=== PATIENT | female | born 1985 | race Caucasian/White ===

== ENCOUNTER 2019-08-20 10:18 | Inpatient (IN) | payer BC ==
[~2019-08-20 10:18] MED LIST: Buffered Lidocaine 1% SYRIN* 1 ML/SYRINGE INTRADERM ONE; Lactated Ringers 1000 ML Bag* 1,000 ML IV SCH
--- OUTSIDE RECORDS SUMMARY | 2019-08-20 10:22 | XMS REPORT | Continuity of Care Document ---
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 Onset: 05/25/2017 Social History Type Date Description Comments Sex Unknown Tobacco Use Start: Unknown Never Smoked Cigarettes Smoking Status Reviewed: 03/27/19 Never Smoked Cigarettes ETOH Use Currently consumes alcohol Tobacco Use Start: Unknown Patient has never smoked Recreational Drug Use Denies Drug Use Exercise Type/Frequency Does not exercise Allergies, Adverse Reactions, Alerts Description No Known Drug Allergies Medications Active Medications SIG Qnty Indications Ordering Date Provider Voltaren apply to scar area 100gm Zhang Benton, 06/26/2019 1% Gel Laura Gabapentin 1 po tid 270caps Jason Bruce 04/04/2019 300mg Laura Burdick Capsules Ventolin HFA 2 puffs by mouth Unknown four times a day as 108(90Base) mcg/Act needed Aerosol Acetaminophen 1-2 tabs 3x a day Unknown 500mg as needed Tablets Tums 2 chewtabs by mouth Unknown 500mg Chewtabs as needed. Ibuprofen 1 by mouth every 6 90tabs Unknown 800mg hours as needed Tablets Colace 1 tab every day as Unknown 100mg Capsules needed for constipation Baclofen 1 po tid 90tabs Jason Bruce 10mg Tablets Heavenly, M.D. Vitamins 1 by mouth every Unknown day 28-0.8mg Tablets Claritin 1 tab by mouth Unknown 10mg every day prn Capsules Esomeprazole Take One Capsule By Unknown Magnesium Mouth Every Day If 40mg Not Improved In [address] Week Increase To Twice A Day Medications Administered in Office Medication SIG Qnty Indications Ordering Provider Date Celestone 3 mg and 3mg Jevon Harry MD 08/15/2019 Injection Immunizations Description No Information Available Vital Signs Date Vital Result Comment 08/15/2019 8:42am Height 67.25 inches 5'7.25" Weight 292.00 lb Heart Rate 75 /min BP Systolic Sitting 128 mmHg BP Diastolic Sitting 78 mmHg Body Temperature 98.1 F Pain Level 4 O2 % BldC Oximetry 98 % BMI (Body Mass Index) 45.4 kg/m2 03/27/2019 1:31pm Height 67.25 inches 5'7.25" Weight 292.00 lb BP Systolic Sitting 112 mmHg BP Diastolic Sitting 64 mmHg Respiratory Rate 17 /min Pain Level 5 BMI (Body Mass Index) 45.4 kg/m2 Results Test Date Facility Test Result H/L Range Note Laboratory test 05/14/2019 [facility] Clotest SEE RESULT [address] [place] [address] [phone] 1 SEE RESULT BELOW Name: MERLYN HE : [address]: Doc Montelongo MD Acct: [id number] Unit: [id number] AGE: 33 Location: [facility] Re05/14/19 SEX: F Status: REG REF SPEC: [id number] BRANDY: 05/14/[address] [facility] [address]: Doc Montelongo MD REQ: [id number] RECD: 05/14/19 STATUS: TC MELLO DR: Marci Moss MD _ SOURCE: GAS ANTRUM SPDESC: ORDERED: Clotest Procedure Result Reported Site Clotest Final 05/15/19806 ML Clotest Negative * ML - Main Lab . END OF REPORT DEPARTMENT OF PATHOLOGY, [address] [place] [address] Kolton Fowler M.D. Director [facility] # [id number] Procedures Date Code Description Status 08/15/2019 87988 Inject/Drain Joint/Bursa Major W/O US Completed 05/14/2019 70067 Endoscopy Upper GI Biopsy Completed 11/08/2018 215897814 Diabetic Retinal Eye Exam Completed Medical Devices Description No Information Available Encounters Type Date Location Provider Dx Diagnosis Office Visit 03/27/2019 [facility] M21.6x9 Other acquired 2:00p Rio Benton M.D. deformities of unspecified foot Office Visit 03/07/2019 [facility] Doc Finnegan. K21.9 Gastro- esophageal 2:00p MD Reginald reflux disease without esophagitis E66.9 Obesity, unspecified M79.671 Pain in right foot D50.9 Iron deficiency anemia, unspecified Assessments Date Code Description Provider 08/15/2019 S43.422A Sprain of left rotator cuff capsule, initial Jevon Harry MD encounter 05/14/2019 Z01.818 Encounter for other preprocedural Doc Montelongo MD examination 05/14/2019 K21.9 Gastro-esophageal reflux disease without Doc Montelongo MD esophagitis 05/14/2019 E66.01 Morbid (severe) obesity due to excess Doc Montelongo MD calories 03/27/2019 M21.6x9 Other acquired deformities of unspecified Zhang Benton M.D. foot 03/07/2019 K21.9 Gastro-esophageal reflux disease without Doc Montelongo MD esophagitis 03/07/2019 E66.9 Obesity, unspecified Doc Montelongo MD 03/07/2019 M79.671 Pain in right foot Doc Montelongo MD 03/07/2019 D50.9 Iron deficiency anemia, unspecified Doc Montelongo MD Plan of Treatment Future Appointment(s):08/29/2019 1:45 pm - Jason Burdick M.D. at [place]08/15/2019 - AIMEE Kim43.422A Sprain of left rotator cuff capsule, initial encounterComments:ice, home exercises sheetsFollow up:Follow up: As needed Functional Status Description No Information Available Mental Status Description No Information Available Referrals Description No Information Available
[2019-08-20] MEDS ORDERED: fentaNYL* 50 MCG/ML 2 ML VIAL (100 MCG VIAL) ONE (10:43)
[2019-08-20] MEDS ORDERED: Propofol* 10 MG/ML 20 ML BTL ONE (10:43)
[2019-08-20] MEDS ORDERED: Midazolam* 1 MG/ML 2 ML VIAL (2 MG) ONE ×3 (10:43→13:51)
[2019-08-20] MEDS ORDERED: Lidocaine 2% PF * 5 ML VIAL ONE ×2 (10:44→12:35)
[2019-08-20] MEDS ORDERED: Heparin VIAL(*) 5000 UNITS/ML VIAL (FIVE THOUSAND) ONE (10:51)
[2019-08-20] MEDS ORDERED: ceFAZolin 1 GM ADVAN(*) 1 GM ADDV.VIAL IVPB ONE (10:51)
[2019-08-20] MEDS ORDERED: Buffered Lidocaine 1% SYRIN* 1 ML/SYRINGE INTRADERM ONE (10:52)
[2019-08-20] MEDS ORDERED: ceFAZolin 2 GM in NS PREMIX(*) 2 GM/100 ML BAG IVPB ONE (10:52)
[2019-08-20] MEDS ORDERED: Bupivacaine 0.25% SDV PF* 10 ML VIAL INJ ONE (12:03)
[2019-08-20] MEDS ORDERED: Methylene Blue 0.5 %* 50 MG/10 ML AMP IV ONE (12:03)
[2019-08-20] MEDS ORDERED: KETAMINE HCL* 50 MG/ML 10 ML VIAL ONE (12:08)
[2019-08-20] MEDS ORDERED: Propofol* 200 ML ONE (12:09)
[2019-08-20] MEDS ORDERED: Dexamethasone IV* 4 MG/ML 1 ML (4 MG) ONE (12:50)
[2019-08-20] MEDS ORDERED: Metoclopramide IV* 5 MG/ML 2 ML VIAL ONE (12:50)
[2019-08-20] MEDS ORDERED: Ondansetron INJ* 2 MG/ML VIAL ONE (12:50)
[2019-08-20] MEDS ORDERED: DiMENhydriNATE IV* 50 MG/ML VIAL IV PUSH PRN (12:58)
[2019-08-20] MEDS ORDERED: oxyCODONE TAB* 5 MG TAB PO PRN (12:58)
[2019-08-20] MEDS ORDERED: Naloxone* 0.4 MG/ML 1 ML VIAL IV PRN (12:58)
[2019-08-20] MEDS ORDERED: Rocuronium* 10 MG/ML VIAL ONE (13:29)
[2019-08-20] MEDS ORDERED: HYDROmorphone INJ1* 1 MG/ML SYRINGE ONE ×2 (14:41→15:38)
[2019-08-20] MEDS ORDERED: Sugammadex * 200 MG/2 ML VIAL IV PUSH ONE (14:41)
[2019-08-20] MEDS ORDERED: Acetaminophen IV 1GM/100ML * 100 ML ONE (14:43)
[2019-08-20] MEDS ORDERED: DiMENhydriNATE IV* 50 MG/ML VIAL ONE (15:01)
[2019-08-20] MEDS ORDERED: Acetaminophen ADULT LIQ* 650 MG/20.3 ML UDC PO PRN (15:02)
[2019-08-20] MEDS ORDERED: HYDROmorphone INJ* 0.5 MG/0.5 ML SYRINGE IV SLOW PU PRN (15:02)
[2019-08-20] MEDS ORDERED: HYDROmorphone INJ1* 1 MG/ML SYRINGE IV SLOW PU PRN (15:02)
--- NOTE | 2019-08-20 15:02 | BRIEFOPN ---
Brief Operative/Procedure Note - Operation Details Pre-Op Diagnosis: morbid obesity Post-Op Diagnosis: same Procedures: Laparoscopic Dov en Y gastric bypass Surgeon(s)/Proceduralists: Ajay. Asst: KASSANDRA Jones Anesthesia: GET Estimated Blood Loss: < 50 ml Findings: as above Specimen(s)/Culture(s) Description: none Complications: none
[2019-08-20] MEDS ORDERED: Albuterol HFA INHALER* 8 gm MDI INH PRN (15:08)
[2019-08-20] MEDS: HYDROmorphone INJ1* 1 MG/ML SYRINGE IV PRN ×2 (15:39→17:13)
[2019-08-20] MEDS: Lactated Ringers 1000 ML Bag* 1,000 ML IV SCH (18:10)
[2019-08-20] MEDS: Ketorolac INJ* 30 MG/ML 1 ML VIAL IV SCH (18:10)
[2019-08-20] MEDS: Famotidine IV* 10 MG/ML 2 ML (20 mg) IV SLOW PU SCH (19:39)
[2019-08-20] MEDS: Ondansetron INJ* 2 MG/ML VIAL IV PRN (19:39)
[2019-08-20] MEDS: Heparin VIAL(*) 5000 UNITS/ML VIAL (FIVE THOUSAND) SUBCUT SCH (21:36)
[2019-08-21] MEDS: Ketorolac INJ* 30 MG/ML 1 ML VIAL IV SCH ×5 (00:18→23:24)
[2019-08-21] MEDS: Lactated Ringers 1000 ML Bag* 1,000 ML IV SCH ×2 (00:28→07:19)
[2019-08-21] MEDS: Ondansetron INJ* 2 MG/ML VIAL IV PRN (02:49)
[2019-08-21] MEDS: Heparin VIAL(*) 5000 UNITS/ML VIAL (FIVE THOUSAND) SUBCUT SCH ×3 (05:55→21:28)
--- NOTE | 2019-08-21 06:08 | OP ---
CC: Marci Hernández MD *; [facility] DATE OF OPERATION: 08/20/19 - ROOM #353 DATE OF : [birth year] SURGEON: Aamir Moss MD RISK AND COMPLIANCE ANALYTICS DIRECTOR: KASSANDRA Godinez ANESTHESIOLOGIST: Laurita Zaragoza DO ANESTHESIA: General endotracheal. PRE-OP DIAGNOSIS: Clinically severe obesity. POST-OP DIAGNOSIS: Clinically severe obesity. OPERATIVE PROCEDURE: Laparoscopic Dov-en-Y gastric bypass. ESTIMATED BLOOD LOSS: Minimal. IV FLUIDS: Crystalloids. SPECIMENS: None. DRAINS: None. COMPLICATIONS: None. COUNTS: Instrument, needle, and sponge counts correct. DESCRIPTION OF PROCEDURE: The patient was brought to the operating room, placed on the table supine. Sequential compression devices were placed on both lower extremities. General anesthesia was administered. She was positioned and padded appropriately. She received appropriate intravenous antibiotics. After sterile prep and drape of the abdomen, a time-out was performed. Local anesthetic was infiltrated into the skin and soft tissue prior to making each incision. Entry to the abdomen was through a left upper quadrant incision accommodating a 12 mm Optical trocar. After accessing the peritoneal cavity, carbon dioxide was insufflated to a pressure of 15 mmHg. Under direct visualization, 12 mm trocars were placed in supraumbilical midline in the right upper quadrant. 5 mm trocars were placed in the left upper quadrant laterally and right upper quadrant medially. A Garth liver retractor was placed percutaneously in the subxiphoid position and used to elevate the left lobe of the liver. Inspection revealed a very small umbilical hernia with a piece of omentum protruding through this. This was divided with a LigaSure. Next the patient was noted to have a dimple at the hiatus which was suspicious for hiatal hernia, though there was no stomach contained within this. Mobilization of the stomach away from the left lillie of the diaphragm was performed bluntly. Then perigastric dissection was undertaken at the lesser curvature at the second crossing vein. With several firings of the Endo-FRANKLIN stapler with rust cartridges, the gastric pouch was created approximating 15 to 30 mL volume. Staple lines were noted to be intact and hemostatic. Omentum was retracted cephalad along with the transverse colon and the Ligament of Treitz was identified. Jejunum was measured approximately 50 cm and the loop was sutured to the lateral staple line of the gastric pouch with interrupted 2-0 silk. Gastrojejunal anastomosis was created with the Endo-FRANKLIN stapler with a 30 mm rust cartridge. This was then closed over a 34 Lithuanian gastric lavage tube with 3-0 PDS running. The jejunal loop was then divided to the left of midline with the FRANKLIN stapler to complete the anastomosis and the anastomosis was tested with methylene blue dye solution instilled through the orogastric tube and no leak was identified. The jejunum was then measured out 75 cm at the splenic flexure. At this point, a functional end-to-side jejunojejunostomy was created. The common enterotomy was again run close with 3-0 PDS surrounding it to and fro and tying it to itself. Mesenteric defect was closed with 3-0 silks in an interrupted figure-of- eight fashion. Hemostasis was assured. Ports were removed under direct visualization along with liver retractor and carbon-dioxide. Incisions were closed with 4-0 Monocryl in a subcuticular fashion. DermaFlex was applied to sides. The patient tolerated the procedure well and was extubated and transferred to the recovery stable. [id number]/[facility] #: [id number] [facility]
[2019-08-21] MEDS: Famotidine IV* 10 MG/ML 2 ML (20 mg) IV SLOW PU SCH ×2 (08:36→21:16)
--- NOTE | 2019-08-21 10:26 | PN ---
Progress Note - Progress Note Date of Service: 08/21/19 SOAP: Subjective: Pt in NAD, comfortable in bed, + Flatus, - BM, - nausea. Ambulating well in halls [] Objective: Vital Signs Temp 98.2 F 08/21/19 07:53 Pulse 63 08/21/19 07:53 Resp 18 08/21/19 08:00 BP 129/74 08/21/19 07:53 Pulse Ox 97 08/21/19 07:53 Intake & Output 08/20/19 08/21/19 08/21/19 18:59 06:59 18:59 Intake Total 7828 508 4551 Output Total 900 200 Balance 1700 16 800 Weight 254 lb Intake: IV Fluids 4392 055 2898 LR 1839 451 8425 Oral 0 Output: Urine 900 200 PEX: awake and alert AxO x 3 Chest: CTA B/L CVS: RRR Abd: Obese, soft, hypoactive BS's incisions C/D/I incisional tenderness Ext: Calves soft b/L [] Assessment: 33 yo female POD 1 s/p RNYGB, + Flatus, - BM [] Plan: begin Bariatric Clears, observation, encouraged deep breathing, ambulate. []
[2019-08-21] MEDS: D5W 1/2 NS KCl 20 Meq 1000 ML* 1,000 ML IV SCH ×2 (14:48→23:20)
[2019-08-21] MEDS: HYDROcodone/ACET. 7.5/325 LIQ* 15 ML UDC PO PRN ×2 (15:31→21:20)
[2019-08-22] MEDS: Heparin VIAL(*) 5000 UNITS/ML VIAL (FIVE THOUSAND) SUBCUT SCH (05:26)
[2019-08-22] MEDS: Ketorolac INJ* 30 MG/ML 1 ML VIAL IV SCH (05:27)
[2019-08-22 08:08] VITALS: BP 110/69
[2019-08-22] MEDS: D5W 1/2 NS KCl 20 Meq 1000 ML* 1,000 ML IV SCH (08:30)
[2019-08-22] MEDS: Famotidine IV* 10 MG/ML 2 ML (20 mg) IV SLOW PU SCH (09:39)
--- NOTE | 2019-08-22 09:43 | DS ---
AMENDED REPORT NOW INCLUDES DESIGNATED COSIGNER CC: Dr. Marci Hernández * DISCHARGE SUMMARY: DATE OF ADMISSION: 08/20/19 DATE OF DISCHARGE: 08/22/19 ATTENDING SURGEON: Dr. Aamir Moss.* (DICTATED BY KASSANDRA WORKMAN) HOSPITAL COURSE: Please refer to admission history and physical and operative note for details. The patient underwent laparoscopic Dov-en-Y gastric bypass with Dr. Moss on 08/20/19. She has had a fairly expectant postoperative course with gradual improvement in intake of bariatric clear liquids. As on the morning of discharge, her pain is well controlled. She was seen earlier this morning by Dr. Moss. He has reviewed with her her postoperative instructions regarding diet, wound care, and activity. She has a followup with [facility] next week. She is discharged to home in good condition. KASSANDRA WORKMAN [id number]/[facility] #: [id number] MTDD
--- NOTE | 2019-08-22 11:05 | PN ---
Progress Note - Progress Note Date of Service: 08/22/19 Note: Seen earlier this a.m. by Dr. Moss. Ambar bariatric clears well. Pain controlled. OK for d/c home. See dictated summary and d/c instructions.
== END 2019-08-22 11:20 | disposition home or self-care (01) | DRG 403 ==
LOC: AA 10:18 → SSU 17:49
PROVIDERS: ADMIT Surgery; ATTEND Surgery
PROC: 0D164ZA Bypass Stomach to Jejunum, Percutaneous Endoscopic Approach (ICD-10-PCS; principal; 2019-08-20 12:15)
DX: E66.01 Morbid (severe) obesity due to excess calories (principal); G81.10 Spastic hemiplegia affecting unspecified side; H46.9 Unspecified optic neuritis; K21.9 Gastro-esophageal reflux disease without esophagitis; F41.9 Anxiety disorder, unspecified; F32.9 Major depressive disorder, single episode, unspecified; J45.909 Unspecified asthma, uncomplicated; M19.90 Unspecified osteoarthritis, unspecified site; G89.29 Other chronic pain; M54.9 Dorsalgia, unspecified; G62.9 Polyneuropathy, unspecified; K42.9 Umbilical hernia without obstruction or gangrene; Z68.41 Body mass index [BMI] 40.0-44.9, adult; Z91.040 Latex allergy status; Z91.011 Allergy to milk products; Z91.018 Allergy to other foods; Z72.89 Other problems related to lifestyle
CPT/HCPCS: 43644; A9270-GY; C1776; J0690; J1100; J1170; J1240; J1644; J1885; J2250; J2405; J2704; J2765; J3010; J3490

== ENCOUNTER 2019-11-06 15:08 | Emergency (ER) | payer BC ==
[2019-11-06] MEDS ORDERED: Thiamine INJ* 100 MG, Folic Acid IV* 1 MG, Multiple Vitamin IV ADULT* 10 ML in NS 0.9% ... IV ONE (16:55)
--- NOTE | 2019-11-06 16:57 | ED ---
Abdominal Pain/Female - HPI Summary HPI Summary: Patient complains of left upper quadrant pain and epigastric pain starting yesterday after lunch. Pain described as new onset, sharp, intermittent, sometimes worse after eating or drinking fluids. Pain lasts for seconds to minutes. Rated at worst 8/10. Pain is worse with deep inhalation. Patient also states she has been having a feeling that she can't get enough air, but states it is secondary to increase in left upper quadrant pain with deep inhalation. Denies recent decrease in endurance, exertional SOB or CP. Patient states she is active, and has 2 young kids. History of gastric bypass in July [address] Moss. Patient was evaluated at surgical clinic today by nurse practitioner and was sent to the ED for further evaluation. Patient denies fever, cough, sore throat, CP, N/V/D, change in urine, change in BM, vaginal symptoms, back pain. Patient is perk negative. Medical history is asthma. Abdominal surgical history is gastric bypass. - History of Current Complaint Chief Complaint: EDAbdPain Stated Complaint: ABD PAIN AND CHEST PAIN Time Seen by Provider: 11/06/19 16:47 Hx Obtained From: Patient Hx Last Menstrual Period: 04/21/16 Onset/Duration: Sudden Onset, Lasting Hours Timing: Minutes Severity Initially: Moderate Severity Currently: Mild Pain Intensity: 5 Pain Scale Used: 0-10 Numeric Location: Discrete At: LUQ, Epigastric Radiates: No Aggravating Factor(s): Food Alleviating Factor(s): Nothing Associated Signs and Symptoms: Positive: Decreased Appetite Allergies/Adverse Reactions: Allergies Allergy/AdvReac Type Severity Reaction Status Date / Time latex Allergy Mild skin Verified 11/06/19 15:14 irritation- rash PMH/Surg Hx/FS Hx/Imm Hx Endocrine/Hematology History: Reports: Hx Anemia - w/ Denies: Hx Diabetes, Hx Thyroid Disease Cardiovascular History: Denies: Hx Congestive Heart Failure, Hx Deep Vein Thrombosis, Hx Hypertension , Hx Myocardial Infarction, Hx Pacemaker/ICD Respiratory History: Reports: Hx Asthma Denies: Hx Chronic Obstructive Pulmonary Disease (COPD), Hx Lung Cancer, Hx Pneumonia, Hx Pulmonary Embolism GI History: Reports: Hx Gastroesophageal Reflux Disease - controlled with meds Denies: Hx Gall Bladder Disease, Hx Gastrointestinal Bleed, Hx Ulcer, Hx Urosepsis History: Denies: Hx Kidney Stones, Hx Renal Disease Musculoskeletal History: Reports: Hx Arthritis - ankle, Hx Tendonitis - hips Sensory History: Reports: Hx Contacts or Glasses Denies: Hx Hearing Aid Opthamlomology History: Reports: Hx Contacts or Glasses EENT History: Denies: Hx Deafness Neurological History: Reports: Hx Nerve Disease - neuropathy Denies: Hx Dementia, Hx Migraine, Hx Seizures, Hx Transient Ischemic Attacks (TIA) Psychiatric History: Reports: Hx Anxiety - She does not take anything for it. She is breast feeding at this time. Denies: Hx Depression, Hx Panic Disorder, Hx Schizophrenia, Hx Bipolar Disorder - Cancer History Hx Chemotherapy: No - Surgical History Surgery Procedure, Year, and Place: tonsils,adenoids,wisdom teeth Hx Anesthesia Reactions: No Infectious Disease History: No Infectious Disease History: Denies: Traveled Outside the [place] in Last 30 Days - Family History Known Family History: Positive: Hypertension Negative: Cardiac Disease, Diabetes - Social History Alcohol Use: None Substance Use Type: Reports: None Smoking Status (MU): Never Smoked Tobacco Review of Systems Constitutional: Negative Eyes: Negative ENT: Negative Cardiovascular: Negative Positive: Shortness Of Breath Positive: Abdominal Pain Genitourinary: Negative Musculoskeletal: Negative Skin: Negative Neurological: Negative Psychological: Normal All Other Systems Reviewed And Are Negative: Yes Physical Exam - Summary Physical Exam Summary: Tenderness in epigastric and left upper quadrant. Abdominal exam otherwise unremarkable. Lung sounds clear to auscultation bilaterally. Triage Information Reviewed: Yes Vital Signs On Initial Exam: Initial Vitals Temp Pulse Resp BP Pulse Ox 97.7 F 76 14 128/95 99 11/06/19 15:11 11/06/19 15:11 11/06/19 15:11 11/06/19 15:11 11/06/19 15:11 Vital Signs Reviewed: Yes Appearance: Positive: Well-Appearing Head/Face: Positive: Normal Head/Face Inspection Eyes: Positive: Normal Neck: Positive: Supple Respiratory/Lung Sounds: Positive: Clear to Auscultation Cardiovascular: Positive: Normal Abdomen Description: Positive: Nontender, Other: Musculoskeletal: Positive: Normal Neurological: Positive: Normal Psychiatric: Positive: Normal AVPU Assessment: Alert - Ashleigh Coma Scale Best Eye Response: 4 - Spontaneous Best Motor Response: 6 - Obeys Commands Procedures - Sedation Patient Received Moderate/Deep Sedation with Procedure: No Diagnostics - Vital Signs Vital Signs Temp Pulse Resp BP Pulse Ox 11/06/19 15:11 97.7 F 76 14 128/95 99 - Laboratory Result Diagrams: 11/06/19 17:09 11/06/19 17:09 Lab Statement: Any lab studies that have been ordered have been reviewed, and results considered in the medical decision making process. Abdominal Pain Fem Course/Dx - Course Course Of Treatment: Patient complains of left upper quadrant pain and epigastric pain starting yesterday after lunch. Pain described as new onset, sharp, intermittent, sometimes worse after eating or drinking fluids. Pain lasts for seconds to minutes. Rated at worst 8/10. Pain is worse with deep inhalation. Patient also states she has been having a feeling that she can't get enough air, but states it is secondary to increase in left upper quadrant pain with deep inhalation. Denies recent decrease in endurance, exertional SOB or CP. Patient states she is active, and has 2 young kids. History of gastric bypass in July [address] Moss. Patient was evaluated at surgical clinic today by nurse practitioner and was sent to the ED for further evaluation. Patient denies fever, cough, sore throat, CP, N/V/D, change in urine, change in BM, vaginal symptoms, back pain. Patient is perk negative. Medical history is asthma. Abdominal surgical history is gastric bypass. Vital signs within normal limits. PERC negative. Labs unremarkable. Chest x- ray unremarkable. CT abdomen and pelvis with oral contrast positive for mildly prominent mesenteric lymph nodes including in the right lower quadrant, possible mild mesenteric adenitis. There is an involuting follicle or cyst of the left ovary measuring 2.3 cm. Right-sided pericardial cyst. Patient also evaluated by surgery supervisor carbon paper coating Dr. Bernal recommended discharge home and follow-up with bariatric surgeon. - Diagnoses Provider Diagnoses: Abdominal pain Discharge ED - Sign-Out/Discharge Documenting (check all that apply): Patient Departure - Discharge Plan Condition: Stable Disposition: HOME Prescriptions: Oxycodone HCl 5 mg PO BID 2 Days #4 tablet MDD 3 tabs Patient Education Materials: Acute Abdominal Pain (ED) Forms: *Work Release Referrals: Marci Hernández MD [Primary Care Provider] - Additional Instructions: Follow-up with your bariatric surgeon for further evaluation. Return to the ED for any new or worsening symptoms. - Billing Disposition and Condition Condition: STABLE Disposition: Home
[2019-11-06 17:21] LABS: ABS Eosinophils 0.1 10^3/ul (0-0.6); ABS Lymphocytes 1.9 10^3/ul (1.0-4.8); ABS Monocytes 0.4 10^3/ul (0-0.8); ABS Neutrophils 3.9 10^3/ul (1.5-7.7); Eosinophil % 0.9 %; Hematocrit 40 % (35-47); Hemoglobin 13.7 g/dL (12.0-16.0); Lymphocyte % 29.9 %; Mean Corpuscular HGB Conc 34 g/dL (31-36); Mean Corpuscular Hemoglobin 29 pg (27-31); Mean Corpuscular Volume 85 fL (80-97); Mean Platelet Volume 9.2 fL (7.4-10.4); Nucleated Red Blood Cells % 0.1; Platelet Count 162 10^3/uL (150-450); Red Blood Count 4.72 10^6 /uL (3.70-4.87); Red Cell Distribution Width 14 % (10-15); White Blood Count 6.3 10^3/uL (3.5-10.8)
[2019-11-06 18:02] LABS: ALT 26 U/L (7-52); AST 16 U/L (13-39); Albumin 4.4 g/dL (3.2-5.2); Albumin/Globulin Ratio 1.7 (1-3); Alkaline Phosphatase 74 U/L (34-104); Anion Gap 9 mmol/L (2-11); BUN/Creatinine Ratio 25.5 (8-20); Blood Urea Nitrogen 13 mg/dL (6-24); C Reactive Protein 1.43 mg/L (<8.01); CO2 Carbon Dioxide 25 mmol/L (22-32); Calcium 9.5 mg/dL (8.6-10.3); Chloride 105 mmol/L (101-111); EGFR African American 169.1 (>60); EGFR Non-African American 139.8 (>60); Globulin 2.6 g/dL (2-4); Glucose 75 mg/dL (70-100); Magnesium 1.9 mg/dL (1.9-2.7); Potassium 3.5 mmol/L (3.5-5.0); Sodium 139 mmol/L (135-145)
[2019-11-06 18:07] LABS: HCG Pregnancy < 0.60 mIU/mL
[2019-11-06] MEDS ORDERED: Iohexol 300* (CONTRAST) 10 ML SDV IV ONE (18:18)
[2019-11-06 19:39] LABS: Urine Appearance Clear; Urine Bilirubin Negative (Negative); Urine Blood Negative (Negative); Urine Color Yellow; Urine Glucose Negative (Negative); Urine Ketones 1+ (Negative); Urine Nitrite Negative (Negative); Urine Protein Negative (Negative); Urine Urobilinogen Negative (Negative)
[2019-11-06 20:59] VITALS: BP 114/71
--- NOTE | 2019-11-06 21:04 | CONSULT ---
Consult Consult: DATE OF CONSULTATION: 11/06/19 REASON FOR CONSULTATION: Abdominal pain HPI: Penny He is a 34 year-old woman with a history of asthma and s/p Dov-en- Y gastric bypass in July [address] Moss who presents to the ED with LUQ abdominal pain. The pain first started yesterday afternoon after eating lunch. By dinner time she was feeling hungry, and the pain had improved. She was able to eat a protein bar without any issues. She actually felt the pain had more or less resolved last night. She was still feeling well this morning until she started drinking a protein shake. She then had severe LUQ abdominal pain which intermittently radiated to her chest. The pain is variable in intensity but is worse after drinking liquids. Right now the pain is tolerable and maybe slightly better than earlier today. She was seen in the bariatric clinic this afternoon and then sent to the ED for further work up. She denies nausea or vomiting. She denies acid reflux. Bowel movements have been normal and regular. She denies black or bloody stools. She denies fevers or chills. She reports some shortness of breath which she attributes to pain. PMH: Asthma, hereditary spasticity, neuropathy. PSH: Dov-en-Y gastric bypass in 07/2019. Tubal ligation. Tonsillectomy and adenoidectomy at age 18. Home Medications Medication Instructions Recorded Confirmed Type Albuterol HFA INHALER* [Ventolin 2 puff INH Q4H PRN 03/02/15 08/20/19 History HFA Inhaler*] Baclofen TAB* [Lioresal TAB*] 10 mg PO TID 03/08/19 08/20/19 History Calcium Carbonate CHEW TAB* [Tums*] 1,000 mg PO BID PRN 03/08/19 08/20/19 History Docusate CAP* [Colace Cap*] 100 mg PO DAILY PRN 03/08/19 08/20/19 History Gabapentin CAP(*) [Neurontin 100 300 mg PO TID 03/08/19 08/20/19 History mg CAP(*)] Loratadine [Claritin] 10 mg PO DAILY PRN 03/08/19 08/20/19 History Vitamin TAB* 1 tab PO QAM 03/08/19 08/20/19 History Acetaminophen [Acetaminophen Extra 500 mg PO Q8H PRN 05/07/19 08/20/19 History Strength] Cholecalciferol (Vitamin D3) 3,000 unit PO QAM 08/15/19 08/20/19 History [Vitamin D3] Oxycodone HCl 5 mg PO BID 2 Days #4 tablet MDD 3 11/06/19 Rx tabs Allergies latex Allergy (Mild, Verified 11/06/19 15:14) skin irritation- rash FH: Father alive and well. Mother with HTN. Sister with HTN and diabetes. SH: Lives with and 2 sons. 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 Denies tobacco, alcohol, or drug use. ROS: 10-point review of systems was obtained. Pertinent positives and negatives are in HPI. PHYSICAL EXAM: Vital Signs - 12 hr Temp Pulse Resp BP Pulse Ox 11/06/19 20:55 114/71 11/06/19 19:00 49 15 99 11/06/19 18:00 60 17 99 11/06/19 17:00 70 14 99 11/06/19 16:36 57 111/71 96 11/06/19 15:11 97.7 F 76 14 128/95 99 General: No acute distress. Appears fatigued. Head: Normocephalic and atraumatic. Eyes: Pupils equal. No scleral icterus. Mouth: Moist mucous membranes. Neck: Trachea midline. CV: RRR Chest: Clear to auscultation Abdomen: Soft, nondistended, obese. Tenderness to palpation in LUQ and epigastrium only. No rebound or guarding. Well-healed laparoscopic incisions. Mild skin irritation at the umbilicus. Extremities: Warm. No pedal edema. Skin: Warm and dry. Neuro: Alert and oriented x3 Laboratory Last Values WBC 6.3 10^3/uL (3.5-10.8) 11/06/19 17:09 RBC 4.72 10^6 /uL (3.70-4.87) 11/06/19 17:09 Hgb 13.7 g/dL (12.0-16.0) 11/06/19 17:09 Hct 40 % (35-47) 11/06/19 17:09 MCV 85 fL (80-97) 11/06/19 17:09 MCH 29 pg (27-31) 11/06/19 17:09 MCHC 34 g/dL (31-36) 11/06/19 17:09 RDW 14 % (10-15) 11/06/19 17:09 Plt Count 162 10^3/uL (150-450) 11/06/19 17:09 MPV 9.2 fL (7.4-10.4) 11/06/19 17:09 Neut % (Auto) 62.1 % 11/06/19 17:09 Lymph % (Auto) 29.9 % 11/06/19 17:09 [place] % (Auto) 6.7 % 11/06/19 17:09 Eos % (Auto) 0.9 % 11/06/19 17:09 Baso % (Auto) 0.4 % 11/06/19 17:09 Absolute Neuts (auto) 3.9 10^3/ul (1.5-7.7) 11/06/19 17:09 Absolute Lymphs (auto) 1.9 10^3/ul (1.0-4.8) 11/06/19 17:09 Absolute Monos (auto) 0.4 10^3/ul (0-0.8) 11/06/19 17:09 Absolute Eos (auto) 0.1 10^3/ul (0-0.6) 11/06/19 17:09 Absolute Basos (auto) 0.0 10^3/ul (0-0.2) 11/06/19 17:09 Absolute Nucleated RBC 0.0 10^3/ul 11/06/19 17:09 Nucleated RBC % 0.1 11/06/19 17:09 Sodium 139 mmol/L (135-145) 11/06/19 17:09 Potassium 3.5 mmol/L (3.5-5.0) 11/06/19 17:09 Chloride 105 mmol/L (101-111) 11/06/19 17:09 Carbon Dioxide 25 mmol/L (22-32) 11/06/19 17:09 Anion Gap 9 mmol/L (2-11) 11/06/19 17:09 BUN 13 mg/dL (6-24) 11/06/19 17:09 Creatinine 0.51 mg/dL (0.51-0.95) 11/06/19 17:09 Est GFR ( Amer) 169.1 (>60) 11/06/19 17:09 Est GFR (Non-Af Amer) 139.8 (>60) 11/06/19 17:09 BUN/Creatinine Ratio 25.5 (8-20) H 11/06/19 17:09 Glucose 75 mg/dL (70-100) 11/06/19 17:09 Lactic Acid 0.6 mmol/L (0.5-2.0) 11/06/19 17:09 Calcium 9.5 mg/dL (8.6-10.3) 11/06/19 17:09 Magnesium 1.9 mg/dL (1.9-2.7) 11/06/19 17:09 Total Bilirubin 0.70 mg/dL (0.2-1.0) 11/06/19 17:09 AST 16 U/L (13-39) 11/06/19 17:09 ALT 26 U/L (7-52) 11/06/19 17:09 Alkaline Phosphatase 74 U/L (34-104) 11/06/19 17:09 C-Reactive Protein 1.43 mg/L (<8.01) 11/06/19 17:09 B-Natriuretic Peptide 24 pg/mL (<=100) 11/06/19 17:09 Total Protein 7.0 g/dL (6.4-8.9) 11/06/19 17:09 Albumin 4.4 g/dL (3.2-5.2) 11/06/19 17:09 Globulin 2.6 g/dL (2-4) 11/06/19 17:09 Albumin/Globulin Ratio 1.7 (1-3) 11/06/19 17:09 Lipase 29 U/L (11.0-82.0) 11/06/19 17:09 Beta HCG, Quant < 0.60 mIU/mL 11/06/19 17:09 Urine Color Yellow 11/06/19: Urine Appearance Clear 11/06/19: Urine pH 6.0 (5-9) 11/06/19: Urine Protein Negative (Negative) 11/06/19: Urine Ketones 1+ (Negative) A 11/06/19 19: Urine Blood Negative (Negative) 11/06/19: Urine Nitrate Negative (Negative) 11/06/19: Urine Bilirubin Negative (Negative) 01/15/20 19:26 Urine Urobilinogen Negative (Negative) 11/06/19 19:26 Ur Leukocyte Esterase Negative (Negative) 11/06/19 19:26 Urine Glucose Negative (Negative) 11/06/19 19:26 CT abdomen/pelvis- No evidence of bowel obstruction. Mildly prominent mesenteric lymph nodes in RLQ. L ovarian follicle or cyst. A&P: 34F with LUQ abdominal pain. Work up is unremarkable with normal lab work, CT scan, and vitals. I discussed with the patient and her that I could admit her to the hospital for pain control and hydration. She feels the pain is tolerable, and she thinks that she will be able to stay hydrated on her own ( she tolerated drinking oral contrast). She also received 1L fluid bolus in the ED. The patient is comfortable going home. She will call the bariatric clinic in the morning to make a follow up appointment with Dr Moss. I advised her to return to the ED if the pain worsens or if she is not able to tolerate oral intake. She had a chance to ask questions and was satisfied with the answers.
== END 2019-11-06 20:58 | disposition home or self-care (01) ==
LOC: ED 15:08
DX: R10.12 Left upper quadrant pain (principal); R10.13 Epigastric pain; R06.02 Shortness of breath; N83.02 Follicular cyst of left ovary; R59.1 Generalized enlarged lymph nodes; J45.909 Unspecified asthma, uncomplicated; K21.9 Gastro-esophageal reflux disease without esophagitis; Z98.84 Bariatric surgery status; Z91.040 Latex allergy status
CPT/HCPCS: 36415; 71046; 74177; 80053; 81003; 83605; 83690; 83735; 83880; 84702; 85025; 86140; 96365; 96366; 99282; J3411; Q9967

== ENCOUNTER 2019-11-11 10:59 | Inpatient (IN) | payer BC ==
[2019-11-11] MEDS ORDERED: Albuterol HFA INHALER* 8 gm MDI INH PRN (12:12)
[2019-11-11 12:43] LABS: Urine Appearance Cloudy; Urine Bilirubin Negative (Negative); Urine Blood Negative (Negative); Urine Color Amber; Urine Glucose Negative (Negative); Urine Ketones 1+ (Negative); Urine Nitrite Negative (Negative); Urine Protein 1+(30 mg/dL) (Negative); Urine Specific Gravity 1.035 (1.010-1.030); Urine Urobilinogen Negative (Negative)
[2019-11-11 12:48] LABS: Urine Bacteria 1+ (Absent); Urine Red Blood Cell Absent (Absent); Urine Squamous Epithelial Cell Present (Absent); Urine White Blood Cell 1+(6-10/hpf) (Absent)
[2019-11-11] MEDS: Lactated Ringers 1000 ML Bag* 1,000 ML IV SCH ×2 (12:55→13:52)
[2019-11-11] MEDS ORDERED: Lactated Ringers 1000 ML Bag* 1,000 ML IV SCH (13:00)
[2019-11-11] MEDS ORDERED: Pantoprazole IV* 40 MG IV SCH (13:00)
[2019-11-11 13:22] LABS: ABS Eosinophils 0.1 10^3/ul (0-0.6); ABS Lymphocytes 1.6 10^3/ul (1.0-4.8); ABS Monocytes 0.4 10^3/ul (0-0.8); ABS Neutrophils 3.4 10^3/ul (1.5-7.7); Eosinophil % 1.2 %; Hematocrit 41 % (35-47); Hemoglobin 13.8 g/dL (12.0-16.0); Lymphocyte % 29.1 %; Mean Corpuscular HGB Conc 34 g/dL (31-36); Mean Corpuscular Hemoglobin 29 pg (27-31); Mean Corpuscular Volume 86 fL (80-97); Mean Platelet Volume 9.1 fL (7.4-10.4); Nucleated Red Blood Cells % 0.1; Platelet Count 163 10^3/uL (150-450); Red Blood Count 4.72 10^6 /uL (3.70-4.87); Red Cell Distribution Width 14 % (10-15); White Blood Count 5.6 10^3/uL (3.5-10.8)
--- NOTE | 2019-11-11 13:45 | HP ---
AMENDED REPORT NOW INCLUDES DESIGNATED COSIGNER - ESIGNED BEFORE ADJUSTMENTS CC: [facility]; Miya Casey NP * ADMISSION HISTORY AND PHYSICAL: DATE OF ADMISSION: 11/11/19 LOCATION: This patient was seen on 11/11/19, on the short-stay surgical unit. ATTENDING PHYSICIAN: Dr. Aamir Moss.* (DICTATED BY MOMO MORRIS NP) PRIMARY CARE PROVIDER: Miya Casey NP CHIEF COMPLAINT: Left upper quadrant abdominal pain. HISTORY OF PRESENT ILLNESS: The patient is a 34-year-old female status post laparoscopic gastric bypass by Dr. Moss on 08/20/19. She presented to our office on 11/07/19 for followup from a visit to the emergency department complaining of left upper quadrant pain rated at a 3, but after eating and drinking increases to stabbing pain up to 9/10. She was started by Dr. Moss on Nexium, but has failed to improve. She was directly admitted to [facility] today and states that she is in too much discomfort to eat or drink, rating her pain currently at 5/10. She has felt mildly nauseated, she continues to pass flatus and had a formed bowel movement yesterday. She denies any painful urination, but has noted concentrated urine. She denies any fever or chills. She has been using nystatin for a fungal rash in the periumbilical region with improvement. I spoke with Dr. Moss by phone and he has talked with Dr. Boland and the patient will undergo EGD today; she will be well hydrated and kept n.p.o. and her labs values will be reviewed. 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 She has been seen in the past by Dr. Buridck, who diagnosed her with spastic hemiplegia; herniated disks x3; chronic back pain; and hammertoes. PAST SURGICAL HISTORY: Laparoscopic gastric bypass on 08/20/[address] Moss; tubal ligation; tonsillectomy with adenoidectomy; endometrial ablation; and wisdom tooth extraction. MEDICATIONS: 1. Nexium 40 mg daily. 2. Baclofen 10 mg p.o. b.i.d. 3. Gabapentin 300 mg p.o. b.i.d. 4. Colace 100 mg p.r.n. 5. Tylenol 500 mg/15 mL and she takes 30 mL p.r.n. 6. She is on various vitamin supplements. ALLERGIES: No known drug allergies, but she does have food allergies to PORK and PORK-DERIVED PRODUCTS and MILK and MILK-RELATED COMPOUNDS and she is also allergic to LATEX. FAMILY HISTORY: No known anesthesia complications, bleeding tendencies, or clotting disorders. 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 She occasionally consumes alcohol and denies the use of other substances. REVIEW OF SYSTEMS: Negative to detailed questioning other than as mentioned in history of present illness. PHYSICAL EXAMINATION GENERAL SURVEY: The patient is a 34-year-old female, well developed, well nourished, in no acute distress. VITAL SIGNS: Height 67 inches, weight 217 pounds, body mass index 34. Blood pressure 116/73, pulse 72 and regular, respiratory rate 18, O2 saturation 100% on room air, temperature 97.4 tympanic. HEENT: Benign. NECK: Supple. No cervical lymphadenopathy. LUNGS: Breath sounds bilaterally clear and equal. HEART: Regular rate and rhythm. No murmurs or rubs appreciated. ABDOMEN: Obese. Active bowel sounds. Well-healed surgical incisions. Mild fungal rash in the umbilicus. Tender to palpation left upper quadrant with mild guarding. No rebound tenderness. No obvious masses or organomegaly. Nondistended. BACK: No CVA tenderness. PELVIC: Exam deferred. RECTAL: Exam deferred. EXTREMITIES: Warm without edema or skin ulceration. NEUROLOGIC: Alert and oriented x3. Steady gait. SKIN: Warm, dry, intact. IMPRESSION: 1. Left upper quadrant abdominal pain, status post laparoscopic gastric bypass. 2. Question marginal ulcer. 3. Question internal hernia. PLAN: Admission to short-stay surgical unit for IV hydration. The patient will be kept n.p.o. She will be started on intravenous Protonix. She will have an upper endoscopy by Dr. Boland today and a possible diagnostic laparoscopy tomorrow by Dr. Moss. The patient has antiemetics and analgesics available as needed. She is in agreement with the current plan. Her CBC and comprehensive metabolic profile will be reviewed later. Dr. Moss was updated. TIME SPENT: 60 minutes with greater than 50% in [id number] history and physical and coordination of care. MOMO MORRIS, DRAWING KILN OPERATOR [id number]/[facility] #: [id number] [facility] HOSPITALMarjorie
[2019-11-11 13:52] LABS: Albumin 4.4 g/dL (3.2-5.2); Albumin/Globulin Ratio 1.7 (1-3); BUN/Creatinine Ratio 28.6 (8-20); Calcium 9.3 mg/dL (8.6-10.3); EGFR African American 177.1 (>60); EGFR Non-African American 146.4 (>60); Globulin 2.6 g/dL (2-4); Potassium 3.6 mmol/L (3.5-5.0); Total Bilirubin 0.8 mg/dL (0.2-1.0)
[2019-11-11] MEDS: Ondansetron INJ* 2 MG/ML VIAL IV PRN (13:52)
[2019-11-11] MEDS ORDERED: fentaNYL* 50 MCG/ML 2 ML VIAL (100 MCG VIAL) ONE (14:09)
[2019-11-11] MEDS ORDERED: Midazolam* 1 MG/ML 10 ML VIAL (10 MG) ONE (14:09)
--- NOTE | 2019-11-11 14:40 | PN ---
Progress Note - Progress Note Date of Service: 11/11/19 Note: EGD Procedure note 25 mg IV fent, 8 mg IV versed E---->nml, no EE, no HH G--->nml size pouch, anastamosis with suture material and teresita, but NO ulcers seen J--->both limbs wnl Non-diagnostic EGD; previous (05/10) hpylori negative, no nsaids per pt BID PPI, carafate if not improved. Addison Boland MD [facility] [phone]
[2019-11-11] MEDS: D5W 1/2 NS KCl 20 Meq 1000 ML* 1,000 ML IV SCH ×2 (15:15→22:08)
--- NOTE | 2019-11-11 15:48 | PRO ---
CC: Dr. Moss * DATE OF PROCEDURE: 11/11/2019. - ROOM #352 PROCEDURE PERFORMED: EGD. INDICATION: Abdominal pain left upper quadrant. REFERRING PHYSICIAN: Dr. Moss. MEDICATIONS GIVEN: 25 mcg IV Fentanyl and 8 mg IV Versed. PROCEDURE: After the EGD procedure, including the risks, benefits, and alternatives, not limited to perforation, surgery and/or were explained to the patient, written consent was then obtained. IV medication was given and a bite- block was placed between the teeth. An Olympus gastroscope was then inserted into the patient's mouth, advanced down the esophagus, into the stomach and into the jejunum. In the esophagus at the GE junction, no erosive esophagitis, stricture, or ring was seen. No hernia was seen. The scope was advanced into a gastric pouch, normal in size for a typical Dov-en-Y gastric bypass surgery. She did have some suture material, both silk sutures and metal teresita at the anastomosis. However, careful and thorough evaluation did not reveal any ulcers in this area. I did navigate down both Dov limbs. One for approximately 30 cm. No abnormalities were seen. The scope was then withdrawn from the patient. She tolerated the procedure well and was returned to the recovery room in stable condition. IMPRESSION: 1. Complete upper endoscopy into the jejunum. 2. Normal EGD, nondiagnostic as to a cause for her abdominal pain. 3. Postsurgical changes. 4. I would recommend we double up on her PPI. We will follow-up with her. [id number]/[facility] #: [id number] SANDY
--- NOTE | 2019-11-11 18:42 | CONS ---
CONSULTATION REPORT: DATE OF CONSULT: 11/11/19 INDICATION: Abdominal pain. NARRATIVE: Ms. He is a pleasant 34-year-old female who underwent Dov-en- Y gastric bypass surgery at the end of July 2019. The patient states approximately 5 days ago she developed abdominal pain. It was located in the left upper quadrant, worse after eating or drinking anything. She did present to the emergency room, was seen by one of our surgeons. She had a negative CT at that time and the pain was manageable. She was offered admission, but declined. The patient states that over the past few days she continues to have moderate pain. Slight nausea, she is having bowel movements, denies any changes there, no vomiting. She did see surgical services in the office and they decided to admit her to the hospital for abdominal pain and possible EGD. She denies any nonsteroidal anti-inflammatories. She has never had pain like this before. She did have a preoperative EGD with a negative CLOtest. PAST MEDICAL HISTORY: Significant for osteoarthritis, asthma, depression, anxiety, obesity, herniated disks. PAST SURGICAL HISTORY: Gastric bypass on 08/20/[address] Moss, tonsillectomy, tubal ligation, tooth extraction. MEDICATIONS UPON ADMISSION: Include: 1. Nexium 40 mg a day. 2. Baclofen 10 mg a day. 3. Gabapentin. 4. Colace. 5. Tylenol. 6. Multivitamin. ALLERGIES: To LATEX. FAMILY HISTORY: No upper GI malignancies in the family. SOCIAL HISTORY: Occasionally drinks alcohol. No tobacco. REVIEW OF SYSTEMS: Twelve systems were reviewed and other than that mentioned in the HPI were unremarkable. PHYSICAL EXAM: Temperature is 97.4, blood pressure is 116/73, pulse of 72, respiratory rate of 18, O2 sat is 100%. General: Well-appearing female, lying flat on the stretcher, alert, oriented, pleasant, fluent. HEENT: Mucous membranes are moist without lesions, ulcers, or exudate. Neck is supple. Trachea is midline. Head is normocephalic, atraumatic. Heart: Regular rate and rhythm. No murmurs, rubs, or gallops. Lungs: Clear to auscultation bilaterally. No wheezes, rales, or rhonchi. Abdomen: Positive bowel sounds. Obese, soft. Slight left upper quadrant tenderness. No rebound. No guarding. Skin is warm and dry. LABORATORY DATA: Labs so far have a hemoglobin of 13.8, normal white count, normal platelet count. Chemistry panel shows a creatinine of 0.49. Rest of her complete metabolic profile is normal. She has a UA that is pending. ASSESSMENT AND PLAN: This is a pleasant 34-year-old female with left upper quadrant abdominal pain after a Dov-en-Y gastric bypass surgery. Possibilities would include peptic ulcer disease, gastroesophageal reflux disease, hernias. At this point, she has been admitted to the hospital. We will make arrangements for an urgent EGD later on today. [id number]/[facility] #: [id number] SANDY
[2019-11-11] MEDS: HYDROmorphone INJ* 0.5 MG/0.5 ML SYRINGE IV SLOW PU PRN (21:18)
[2019-11-11] MEDS: Pantoprazole TAB * 40 MG TAB PO SCH (21:19)
[2019-11-12] MEDS: Ondansetron INJ* 2 MG/ML VIAL IV PRN (00:23)
[2019-11-12] MEDS: D5W 1/2 NS KCl 20 Meq 1000 ML* 1,000 ML IV SCH (05:09)
[2019-11-12] MEDS: HYDROmorphone INJ* 0.5 MG/0.5 ML SYRINGE IV SLOW PU PRN (07:40)
[2019-11-12] MEDS ORDERED: Nystatin CREAM* 15 GM TUBE TOPICAL SCH (09:00)
[2019-11-12] MEDS: Pantoprazole TAB * 40 MG TAB PO SCH (10:48)
[2019-11-12] MEDS ORDERED: HYDROcodone/ACET. 7.5/325 LIQ* 15 ML UDC PO PRN (14:10)
[2019-11-12] MEDS ORDERED: PROCHLORPERAZINE INJ 5 MG/ML 2 ML VIAL IV PRN (14:23)
[2019-11-12] MEDS ORDERED: Scopolamine 1.5 mg* PATCH TRANSDERM PRN (14:23)
[2019-11-12] MEDS ORDERED: oxyCODONE TAB* 5 MG TAB PO PRN (14:23)
[2019-11-12] MEDS ORDERED: Ondansetron INJ* 2 MG/ML VIAL IV PRN (14:23)
[2019-11-12] MEDS ORDERED: Naloxone* 0.4 MG/ML 1 ML VIAL IV PRN (14:23)
[2019-11-12] MEDS ORDERED: diPHENhydraMINE IV* 50 MG/ML 1 ml VIAL (BENADRYL) IV PRN (14:23)
[2019-11-12] MEDS ORDERED: HYDROmorphone INJ1* 1 MG/ML SYRINGE IV PRN (14:23)
[2019-11-12 16:28] VITALS: BP 109/66
--- NOTE | 2019-11-12 16:47 | PN ---
Progress Note - Progress Note Date of Service: 11/12/19 Note: POSTOP NOTE She reports no pain. Mother at bedside. Pt states she would like to go home. Tolerating liquids. Has oxycodone that ER gave her at home and can use for pain prn. PE: NAD AVSS Abd: incisions c/d/i; soft and mildly tender. Impr: s/p lap/robotic dx lap and repair of internal hernia. Plan: Will d/c home. Progress diet to Rod Regular as tolerated. Oxycodone prn and she will call if she needs more (has 4 pills). Will f/u in [facility] in 1 week. To be out of work and no lifting >22# until after postop visit.
--- NOTE | 2019-11-13 02:30 | OP ---
CC: Marci Hernández MD; [facility]. * DATE OF OPERATION: 11/12/19 - ROOM #352 DATE OF : 89 SURGEON: Aamir Moss MD REGIONAL SALES MANAGER: MANUEL Gray ANESTHESIOLOGIST: Dr. Valenzuela. ANESTHESIA: General endotracheal. PRE-OP DIAGNOSIS: Left upper quadrant abdominal pain. POST-OP DIAGNOSIS: Left upper quadrant abdominal pain and internal hernia. OPERATIVE PROCEDURE: Diagnostic laparoscopy and robotic repair of internal hernia. ESTIMATED BLOOD LOSS: Minimal. IV FLUIDS: Crystalloids. SPECIMENS: None. DRAINS: None. COMPLICATIONS: None. COUNT: Instrument, needle, and sponge count correct. OPERATIVE FINDINGS: A retro alimentary limb internal hernia was closed primarily with silk suture. DESCRIPTION OF PROCEDURE: The patient was brought to the operating room and placed on the table in a supine. Sequential compression devices were placed on both lower extremities and general anesthesia was administered. Her abdomen was prepped and draped in the usual sterile fashion. She was positioned and padded appropriately. Time-out was performed. Local anesthetic was infiltrated into the left upper quadrant and a 5-mm Optical trocar was used to access the peritoneal cavity. Then, carbon dioxide was insufflated to a pressure of 15 mmHg. Under direct visualization, an 8 mm trocar was placed in the umbilical region. Inspection was performed and the bowel on the first inspection appeared normal with no evidence of dilation. There was no fluid within the abdominal cavity. Liver appeared normal elevating the right lobe of the liver. The gastrojejunal anastomosis appeared normal. The gagandeep limb was identified. There was a retro alimentary limb hernia without any bowel containing within it. The Gagandeep-limb was followed down to the jejunojejunostomy which appeared patent. There was no defect at the mesentry. The patient was then positioned in Trendelenburg and the pelvis was inspected. No fluid noted there. Cecum appeared normal as did the appendix. Small bowel was noted proximally without any identified abnormalities back to the jejunojejunostomy. From the jejunojejunostomy, the biliopancreatic limb was inspected. It did not appear dilated or abnormal. Remnant stomach did not appear dilated or otherwise abnormal. At this point, decision was made to perform repair of the internal hernia. Additional 8-mm trocars were placed under direct visualization and robot was docked in the usual fashion. A 2-0 silk suture was used to pursestring the peritoneum of the Gagandeep limb mesentery following this down the right side of the mesentery and then up along the transverse colon mesentery and subsequently the suture was tied down to close down the space. Having completed this repair, the ports and carbon dioxide were removed. The incisions were closed with 4-0 Monocryl to approximate the skin and DermaFlex was applied. The patient tolerated the procedure well, was extubated and transferred to the recovery room in stable condition. [id number]/[facility] #: [id number] MTDD
[2019-11-15] MEDS ORDERED: Scopolamine PATCH Remove* 1 NOTE MISC PATCH OFF ONE (14:24)
== END 2019-11-12 17:35 | disposition home or self-care (01) | DRG 229 ==
LOC: SSU 11:55
PROVIDERS: ADMIT Surgery; ATTEND Surgery
PROC: 0DJ08ZZ Inspection of Upper Intestinal Tract, Via Natural or Artificial Opening Endoscopic (ICD-10-PCS; 2019-11-11)
PROC: 8E0W4CZ Robotic Assisted Procedure of Trunk Region, Percutaneous Endoscopic Approach (ICD-10-PCS; 2019-11-12)
PROC: 0DQV4ZZ Repair Mesentery, Percutaneous Endoscopic Approach (ICD-10-PCS; principal; 2019-11-12 11:45)
DX: K46.9 Unspecified abdominal hernia without obstruction or gangrene (principal); M19.90 Unspecified osteoarthritis, unspecified site; J45.909 Unspecified asthma, uncomplicated; F32.9 Major depressive disorder, single episode, unspecified; G62.9 Polyneuropathy, unspecified; G89.29 Other chronic pain; M54.9 Dorsalgia, unspecified; F41.9 Anxiety disorder, unspecified; E66.9 Obesity, unspecified; Z68.32 Body mass index [BMI] 32.0-32.9, adult; Z98.84 Bariatric surgery status; Z91.040 Latex allergy status; Z91.011 Allergy to milk products; Z91.018 Allergy to other foods; Z79.899 Other long term (current) drug therapy
CPT/HCPCS: 36415; 49659; 80053; 81003; 81015; 85025; 87086; 99156; A9270-GY; J1170; J2250; J2405; J3010

== ENCOUNTER 2020-04-08 08:57 | Inpatient (IN) ==
[2020-04-08] MEDS ORDERED: Thiamine 100 MG/ML 2 ml VIAL 100 MG, Folic Acid 1 MG, Multiple Vitamin IV ADULT 10 ML i... IV ONE (09:14)
[2020-04-08] MEDS ORDERED: Al Hydrox/Mg Hydrox/Simet LIQ 30 ML UDC PO ONE (09:16)
[2020-04-08] MEDS ORDERED: Morphine 4 MG/ML VIAL (1 ml) IV ONE (09:30)
[2020-04-08] MEDS ORDERED: Ondansetron 4 mg VIAL 2 MG/ML 2 ml VIAL IV ONE (09:30)
[2020-04-08 09:38] LABS: ABS Eosinophils 0.2 10^3/ul (0-0.6); ABS Lymphocytes 1.2 10^3/ul (1.0-4.8); ABS Monocytes 0.2 10^3/ul (0-0.8); Eosinophil % 5.1 %; Hematocrit 42 % (35-47); Hemoglobin 14.4 g/dL (12.0-16.0); Lymphocyte % 30.9 %; Mean Corpuscular HGB Conc 34 g/dL (31-36); Mean Corpuscular Hemoglobin 30 pg (27-31); Mean Corpuscular Volume 88 fL (80-97); Mean Platelet Volume 9.1 fL (7.4-10.4); Nucleated Red Blood Cells % 0.1; Platelet Count 145 10^3/uL (150-450); Red Blood Count 4.79 10^6 /uL (3.70-4.87); Red Cell Distribution Width 13 % (10-15); White Blood Count 3.7 10^3/uL (3.5-10.8)
[2020-04-08 09:59] LABS: ALT 38 U/L (7-52); AST 17 U/L (13-39); Albumin 4.3 g/dL (3.2-5.2); Albumin/Globulin Ratio 1.5 (1-3); Alkaline Phosphatase 56 U/L (34-104); Anion Gap 5 mmol/L (2-11); BUN/Creatinine Ratio 24.5 (8-20); Blood Urea Nitrogen 13 mg/dL (6-24); CO2 Carbon Dioxide 29 mmol/L (22-32); Calcium 9.3 mg/dL (8.6-10.3); Chloride 103 mmol/L (101-111); EGFR African American 161.8 (>60); EGFR Non-African American 133.7 (>60); Globulin 2.8 g/dL (2-4); Glucose 83 mg/dL (70-100); Potassium 3.7 mmol/L (3.5-5.0); Sodium 137 mmol/L (135-145); Total Protein 7.1 g/dL (6.4-8.9)
[2020-04-08 10:06] LABS: HCG Pregnancy < 0.60 mIU/mL
[2020-04-08] MEDS ORDERED: Midazolam 10 mg/10 ml VIAL 1 mg/ml 10 ml VIAL (10 mg) ONE (14:13)
[2020-04-08] MEDS ORDERED: fentaNYL 100 mcg/2 ml 50 MCG/ML VIAL ONE (14:13)
[2020-04-08] MEDS: Lactated Ringers 1000 ml BAG 1,000 ML IV SCH ×2 (15:41→23:14)
[2020-04-08] MEDS: Ondansetron 4 mg VIAL 2 MG/ML 2 ml VIAL IV PRN (19:16)
[2020-04-08] MEDS: HYDROmorphone 1 MG/1 ML SYRINGE IV SLOW PU PRN ×2 (19:16→23:19)
[2020-04-09] MEDS: Ondansetron 4 mg VIAL 2 MG/ML 2 ml VIAL IV PRN ×3 (00:24→18:18)
[2020-04-09] MEDS: HYDROmorphone 1 MG/1 ML SYRINGE IV SLOW PU PRN ×5 (03:41→23:09)
[2020-04-09] MEDS: Lactated Ringers 1000 ml BAG 1,000 ML IV SCH ×3 (05:55→23:09)
[2020-04-09] MEDS: Multivitamins/Minerals TAB PO SCH (07:50)
[2020-04-10] MEDS: Ondansetron 4 mg VIAL 2 MG/ML 2 ml VIAL IV PRN ×2 (01:55→08:41)
[2020-04-10] MEDS: HYDROmorphone 1 MG/1 ML SYRINGE IV SLOW PU PRN ×2 (03:17→09:10)
[2020-04-10] MEDS ORDERED: Lactated Ringers 1000 ml BAG 1,000 ML IV SCH (06:00)
[2020-04-10] MEDS ORDERED: Acetaminophen IV 1 GM/100ML 100 ML IVPB ONE (08:43)
[2020-04-10] MEDS: Multivitamins/Minerals TAB PO SCH (08:43)
[2020-04-10] MEDS: Lactated Ringers 1000 ml BAG 1,000 ML IV SCH ×2 (08:49→20:07)
[2020-04-10] MEDS ORDERED: CEFOXITIN IVPB ONE (10:37)
[2020-04-10] MEDS ORDERED: NS 0.9% IVPB ONE (10:37)
[2020-04-10] MEDS ORDERED: ceFOXitin 2 GM IVPREMIX (*) 2 GM/50 ML BAG IVPB ONE (11:00)
[2020-04-10] MEDS ORDERED: fentaNYL 100 mcg/2 ml 50 MCG/ML VIAL ONE ×2 (13:21→18:48)
[2020-04-10] MEDS ORDERED: Midazolam 2 mg/2 ml VIAL 1 mg/ml 2 ml VIAL (2 mg) ONE (13:22)
[2020-04-10] MEDS ORDERED: Propofol 10 MG/ML 20 ML BTL ONE ×2 (14:25→17:31)
[2020-04-10] MEDS ORDERED: Rocuronium 50 mg VIAL 10 mg/ml 5 ml VIAL (50 mg) ONE (14:28)
[2020-04-10] MEDS ORDERED: Glycopyrrolate IV 0.2 MG/ML 1 ML VIAL ONE ×2 (14:38→17:31)
[2020-04-10] MEDS ORDERED: Bupivacaine 0.25% EPI 200,000 30 ML SDV ONE (16:27)
[2020-04-10] MEDS ORDERED: ceFOXitin 2 GM IVPREMIX (*) 2 GM/50 ML BAG ONE (16:41)
[2020-04-10] MEDS ORDERED: EPHEDrine (Pressors) 50 MG/ML VIAL ONE (17:31)
[2020-04-10] MEDS ORDERED: Phenylephrine 40 mcg/mL 10mL (400mcg) SYRINGE ONE (17:32)
[2020-04-10] MEDS ORDERED: Naloxone 0.4 mg VIAL 0.4 mg/ml 1 ml VIAL IV PRN (17:35)
[2020-04-10] MEDS ORDERED: Ondansetron 4 mg VIAL 2 MG/ML 2 ml VIAL ONE (17:43)
[2020-04-10] MEDS ORDERED: Dexamethasone IV 4 MG/ML VIAL 1 ml VIAL ONE (17:43)
[2020-04-10] MEDS ORDERED: Acetaminophen IV 1 GM/100ML 1,000 MG/100 ML VIAL IVPB ONE (18:47)
[2020-04-10] MEDS ORDERED: HYDROmorphone 1 MG/1 ML SYRINGE IV PRN (18:47)
[2020-04-10] MEDS ORDERED: Acetaminophen IV 1 GM/100ML 100 ML ONE (18:48)
[2020-04-10] MEDS: fentaNYL 100 mcg/2 ml 50 MCG/ML VIAL IV PRN ×3 (18:49→19:04)
[2020-04-10] MEDS ORDERED: HYDROmorphone 1 MG/1 ML SYRINGE ONE (19:02)
[2020-04-10] MEDS ORDERED: Metoclopramide 5 MG/ML VIAL (10 mg) ONE (19:03)
[2020-04-10] MEDS ORDERED: Magnesium Hydroxide LIQ 30 ML UDC PO PRN (19:59)
[2020-04-10] MEDS ORDERED: HYDROcodone/ACETAMIN 5/325 mg TAB PO PRN (20:01)
[2020-04-10] MEDS: HYDROcodone/ACETAMIN 5/325 mg TAB PO PRN (22:04)
[2020-04-11] MEDS: Lactated Ringers 1000 ml BAG 1,000 ML IV SCH (03:29)
[2020-04-11] MEDS: Multivitamins/Minerals TAB PO SCH (08:41)
[2020-04-11] MEDS ORDERED: Polyethylene Glycol 3350 17 GM PACKET PO SCH (09:00)
[2020-04-11] MEDS: HYDROcodone/ACETAMIN 5/325 mg TAB PO PRN (11:12)
[2020-04-11 11:44] VITALS: BP 106/68
== END 2020-04-11 11:40 | disposition home or self-care (01) | DRG 263 ==
LOC: ED 08:57 → SSU 08:57
PROVIDERS: ADMIT Surgery; ATTEND Surgery